=== PATIENT | female | born 1995 | race Two or more races ===

== ENCOUNTER → 2018-06-29 | Outpatient (CLI) | payer OTHER ==
--- NOTE | 2018-06-29 16:26 | RADIOLOGY IMAGING REPORT ---
FACILITY: [facility] PATIENT NAME: Simona Freeman : 1995 MR: [id number] V: [id number] EXAM DATE: ORDERING PHYSICIAN: YEIMY MIRELES TECHNOLOGIST: [place] [facility] [place] Patient: Simona Freeman : 1995 Visit/Account:[id number] Date of Sevice: 06/29/2018 TOE RIGHT FOOT GREAT TOE Indication: Toe pain Comparison: None Available Findings: No evidence of fracture, dislocation, or acute osseous abnormality. There is no focal soft tissue abnormality. No evidence of radiopaque foreign body. IMPRESSION: No acute osseous abnormality of the right hallux Report Dictated By: Emre Caba MD at 06/29/2018 4:20 PM Report E-Signed By: Emre Caba MD at 06/29/2018 4:21 PM WSN:[id number]
== END ==
LOC: RAD 15:49
PROVIDERS: ATTEND Emergency Medicine Sports Medicine
DX: M79.674 Pain in right toe(s) (principal)